=== PATIENT | female | born 1945 | race Two or more races ===

== ENCOUNTER 2025-11-17 12:22 | Emergency (ER) | payer MEDICARE, MEDICAID, SELFPAY ==
[2025-11-17 12:24] VITALS: BP 142/81; PULSE 87; RESP 18; TEMP 36.4; O2SAT 95; BMI 27.6
[2025-11-17 12:34] VITALS: PULSE 93; RESP 16; O2SAT 98
--- NOTE | 2025-11-17 12:48 | PD.EDADULT ---
ED General RME/HPI General Chief complaint: General Adult/Misc Complain Stated complaint: [employer]PER[employer] FAILURE Time Seen by Provider: 11/17/25 12:32 Arrival date/time: 11/17/25 12:22 80-year-old female patient was brought in by EMS from [facility] for evaluation regarding PICC line not working. This morning the nurse is trying to give her vancomycin IV, and unable to do so due to possible occlusion of the PICC line. Patient been receiving IV vancomycin according to her for more than 5 months due to diabetic toe infection. Patient is currently denying any fever, pain, or any complaints. Patient was seen and followed by a welding estimator from [place]. Related Data Allergies Allergy/AdvReac Type Severity Reaction Status Date / Time codeine Allergy Intermediate Palpitation Verified 11/17/25 14:36 s pentazocine (From Bjorn) Allergy Intermediate Palpitation Verified 11/17/25 14:36 s Review of Systems Review of Systems Narrative Review of Systems: Review of system reviewed and within normal limits except mentioned in HPI ED Exam Narrative Physical exam: VITAL SIGNS: Reviewed. GENERAL APPEARANCE: Alert and interactive, follows commands, no acute distress, HEAD AND FACE: Non-traumatic. ENT: PERRL, pink conjunctivitis, eyelid no trauma, Mucous membrane moist. NECK: Supple, nontender, no nuchal rigidity. CHEST: No tenderness, no crepitus, no paradoxical movement, no retractions. LUNGS: Clear, well ventilated, symmetric, no rales, no wheezing, no ronchi, no stridor, good breath sounds bilaterally. HEART: Regular rate, regular rhythm, no murmur, no gallops. ABDOMEN: Soft, positive bowel sounds, nondistended, no guarding, nontender, no rebound, no masses, RECTAL: Deferred. GENITAL: Deferred. NEUROLOGICAL: Gross motor function intact sensory function intact, Appropriate for age. MUSCULOSKELETAL: low back nontender, full range of motion. EXTREMITIES: Nontender, full range of motion. Left arm PICC line, nonfunctioning SKIN: Color pink, dry, no rash, no lacerations, no abrasions, no contusions. LYMPHATICS: Deferred. Course Quality Measures none Orders Category Date Time Status Insert IV NOW Care 11/17/25 15:57 Active Diet Regular Diet 11/18/25 Breakfast Active Cathflo (Alteplase) Inj 2 mg Med 11/17/25 14:50 Discontinued Sterile Water 2.2 ml INDWELLCAT X1 Vancomycin/Water 1250 mg Ivpb 250 ml Med 11/17/25 14:51 Discontinued IV X1 Late Tray Request Routine Oth 11/17/25 17:46 Active Vital Signs Vital signs: Vital Signs Temperature 97.6 F 11/17/25 12:24 Pulse Rate 87 11/17/25 12:24 Respiratory Rate 18 11/17/25 12:24 Blood Pressure 142/81 H 11/17/25 12:24 Pulse Oximetry (%) 95 11/17/25 12:24 Oxygen Delivery Method Room Air 11/17/25 12:24 Discharge Plan Plan Patient Disposition: HOME (Self Care) Discharge Disposition comment: Stable Prescriptions/Referrals Referrals: Elliot Garrett MD [Primary Care Provider] - In 1 week Problem List Clinical Impression: Foot infection, Occluded PICC line Patient/Caregiver Discharge Instructions Discharge Activity: activity as tolerated Education Materials: ED Wound Check (Infection) Additional Instructions: Thank you for the opportunity for serving you today. You are stable for discharged . You are advised to: Follow-up with your PCP in 1 to 2 days Return to ED for worsening of symptoms Increase oral fluids You received a dose of vancomycin 1250 mg x 1 in the emergency room. I remove your PICC line since it is occluded despite Cathflo given We inserted an IV to the left AC can use it for the next 3 days As your PCP to arrange for PICC line placement this Wednesday Print Language: Portuguese Stand Alone Forms: Kate Award Info., Patient Portal Info Letter KIRA/HILDA Supervising Physician FRANKI Supervising Physician: MD elham MDM Narrative MDM hospital course (for use when minimal MDM required): 80-year-old female patient was brought in by EMS from [facility] for evaluation regarding PICC line not working. This morning the nurse is trying to give her vancomycin IV, and unable to do so due to possible occlusion of the PICC line. Patient been receiving IV vancomycin according to her for more than 5 months due to diabetic toe infection. Patient is currently denying any fever, pain, or any complaints. Patient was seen and followed by a welding estimator from [place]. We tried Cathflo, with no success, I decided to remove the PICC line since it was not working. We are inserting an IV to the left AC and I was able to give a dose of vancomycin 1250 milligram x 1 in the ED. She is scheduled for another vancomycin in the morning. She will be discharged back to her [facility] on IV line. Medication Administration(s) Medication Administration History Discontinued Medications Alteplase, Recombinant 2 mg/ (Sterile Water 2.2 ml) 0 mg INDWELLCAT X1 ONE Stop: 11/17/25 14:51 Last Admin: 11/17/25 15:35 Dose: 2 mg Documented By: BD Vancomycin HCl (Vancomycin/Water 1250 Mg Ivpb) 250 mls @ 120 mls/hr IV X1 ONE Stop: 11/17/25 16:55 Last Infusion: 11/17/25 18:41 Dose: Infused Documented By: Admin: 11/17/25 16:05 Dose: 120 mls/hr Documented By: BD
[2025-11-17 15:00] VITALS: BP 184/79; PULSE 91; RESP 16; TEMP 36.9; O2SAT 94
[2025-11-17] MEDS: CATHFLO (ALTEPLASE) INJ 2 MG, Sterile Water 2.2 ML INDWELLCAT (15:35)
[2025-11-17] MEDS: VANCOMYCIN/WATER 1250 MG IVPB 250 ML 120 MG IV (16:05)
[2025-11-17 16:09] VITALS: BP 151/98; PULSE 82; RESP 21; TEMP 36.9; O2SAT 99
[2025-11-17 17:45] VITALS: BP 183/72; PULSE 83; RESP 16; O2SAT 98
[2025-11-17 19:27] VITALS: BP 175/91; PULSE 87; RESP 16; TEMP 36.5; O2SAT 96
--- NOTE | 2025-11-17 20:03 | PC.NURSE ---
REPORT GIVEN TO NURSE GILBERT AT [facility]
== END 2025-11-17 20:04 | disposition home or self-care (01) ==
PROVIDERS: Emergency Provider Emergency Medicine; PCP Hospitalist
DX: T82.594A Other mechanical complication of infusion catheter, initial encounter (principal); L08.9 Local infection of the skin and subcutaneous tissue, unspecified; Y84.8 Other medical procedures as the cause of abnormal reaction of the patient, or of later complication, without mention of misadventure at the time of the procedure
CPT/HCPCS: 96365; 96366; 99282; A4216; J2997; J3375

== ENCOUNTER 2025-11-21 08:41 | Outpatient (CLI) | payer MEDICARE, MEDICAID, SELFPAY ==
[2025-11-21] VITALS (7 sets, daily range): BP systolic 121–179; BP diastolic 88–106; PULSE 95–108; RESP 15–19; TEMP 36.1–36.9; O2SAT 94–99; BMI 28.0
--- NOTE | 2025-11-21 09:00 | XR_ITS ---
Examination: Ultrasound-guided needle placement left basilic vein. Dual-lumen central line placement (PICC line). Fluoroscopy AP chest, portable, single view Exam date and time: November 21, 2025, 0926 hours INDICATIONS: Need for long-term intravenous antibiotic therapy for osteomyelitis A timeout was completed verifying correct patient, procedure, site, positioning Informed consent provided Technique: The patient's site was prepped and draped in sterile fashion. Maximum Sterile Barrier Technique used including cap, mask, sterile gown, sterile gloves, and sterile full body drape. If ultrasound technique used: sterile gel and sterile probe covers. Hand Hygiene performed using proper scrub, soap and water, or alcohol-based hand rub. Site right portable upright is utilized to confirm patency of the left basilic vein, utilizing ultrasonographic guidance successful 21-gauge needle puncture into the left basilic vein Ultrasound images recorded and stored. 5 cc 1% lidocaine administered for local anesthetic. Successful micropuncture with a 21-gauge needle is performed. 0.18 wire guide is then introduced into the SVC under fluoroscopic guidance. Dual-lumen catheter dilator is then introduced, followed by the catheter in the SVC and proper position under fluoroscopic guidance. Successful aspiration of blood and flushing with heparinized saline is then performed in the 2 venous limbs. The catheter sutured in place. Findings: Under fluoroscopy, the tip of the catheter is in good position in the vena cava. Portable chest x-ray, post line placement is ordered. Estimated blood loss 3 cc The patient tolerated the procedure well and was in stable and satisfactory condition at completion of the procedure Impression: Successful ultrasound-guided needle placement left basilic vein Successful placement of dual lumen central line, percutaneous Fluoroscopy 0.2-minute radiation dose 0.75 mGy 1 spot fluoroscopic chest. AP chest completion procedure demonstrates satisfactory position central line. May use central line.
[2025-11-21] MEDS: HEPARIN SOD LOCK SYR 100 UNIT/ML 500 UNIT IV (10:17)
[2025-11-21] MEDS: LIDOCAINE INJ PF 1% 30 ML VIAL 4 ML EPID (10:18)
--- NOTE | 2025-11-21 11:16 | PC.NURSE ---
patient transferred via wheelchair to waiting room with caregiver concepcion. patient alert and oriented. gcs of 15. education given to patient, caregiver and hand off report given to elsy ashley [facility]. they expressed verbal understanding. patient arrieved with a 22g iv on the left hand. IV left in placed due to no dr. order to remove.
== END 2025-11-21 11:18 | disposition home or self-care (01) ==
PROVIDERS: PCP Hospitalist; Referring Provider Hospitalist; Visit Provider Hospitalist
DX: M62.59 Muscle wasting and atrophy, not elsewhere classified, multiple sites (principal)
CPT/HCPCS: 36573; C1751; C1894; J1642; J3490; J7050